=== PATIENT | male | born 1935 | race Caucasian/White ===

== ENCOUNTER 2025-04-30 14:35 | Emergency (ER) | payer MEDICARE, OTHER, SELFPAY ==
[2025-04-30 14:43] VITALS: BMI 30.7
[2025-04-30 14:44] VITALS: PULSE 77; O2SAT 97
--- NOTE | 2025-04-30 14:52 | EDNOTE_ITS ---
ED Weakness RME/HPI General Chief complaint: Weakness Stated complaint: WEAKNESS Time Seen by Provider: 04/30/25 14:43 Arrival date/time: 04/30/25 14:35 RME / HPI RME / HPI Narrative: 89 year old male with history of hypertension and diabetes presents to the ED BIBA from home for evaluation of weakness today. Per medics, on scene reported at baseline the patient is able to walk with assistance of walker. However, noted this morning the patient was having difficulty getting up out of bed which concerned her. Per medics, G-FAST on scene was negative for stroke, vital signs remained stable, and prehospital BS 131. Medics mentioned the patient did urinate on himself which they report was due to not getting the urinal on time. In the ED, patient denies any fevers, chills, chest pain, cough, shortness of breath, abdominal pain, n/v/d, or urinary symptoms. Related Data Home Medications ?Medication ?Instructions ?Recorded ?Confirmed Ezetimibe/Simvastatin * (VYTORIN 1 tab PO HS #0 tabs 1 08/14/15 *) Minocycline Hcl 1 tab PO QDAY Inflammation # #0 06/14/16 allopurinol 100 mg tablet 100 mg PO QDAY #0 tabs 06/14 (Zyloprim) atenolol 50 mg tablet (Tenormin) 50 mg PO QAM High Blo od Pressure 06/14/16 #0 tabs indapamide 1.25 mg tablet 5 mg PO QDAY #0 tabs 6 prazosin 1 mg capsule (Minipress) 1 mg PO QDAY #0 caps 06/14/16 Allergies Allergy/AdvReac Type Severity Reaction Status Date / Time Penicillins Allergy Unknown Verified 04/30/25 14:43 Review of Systems Review of Systems Systems Reviewed: All systems reviewed, normal except as documented Past Medical History Past Medical History CARDIAC: Positive Hypertension ENDOCRINE: Positive Diabetes Mellitus Type 2 Surgical History SURGICAL: Positive Vascular Surgery, Joint Replacement and Knee Sx Social History SMOKING STATUS: Never smoker ED Exam Narrative Physical exam: Constitutional: Awake, alert, nontoxic, elderly, frail, noted to have urinary incontinence on initial exam. HEENT: Normocephalic, atraumatic, extraocular movements intact. Neck: Supple CV: Regular rate and rhythm, no murmurs/rubs/gallops Lungs: Clear to auscultation BL, no respiratory distress. Abd: Soft, NT, ND, no HSM noted to palpation Extremities: No deformities, decreased range of motion noted to left lower extremity which per patient is baseline. Neuro: AAOx3, CN 2-12 GIBL, no acute neuro deficit noted. Skin: Warm, dry, intact Course Course Course Narrative: 1800h: Patient's potassium is low at 3.1?replaced with 40 of potassium p.o. Received 1 L normal saline. Currently awaiting urinalysis. Chest x-ray shows possible early pneumonia to base. Patient will be signed out to Dr. Azul pending urinalysis and disposition. If patient is able to ambulate well in department after meds, likely would be able to discharge home with close outpatient follow-up. Quality Measures none Orders Category Date Time Status Outpatient Therapist STAT Care 04/30/25 14:54 Active Continuous Pulse Oximetry ONCE Care 04/30/25 14:54 Active EKG (ED ONLY) *Do not use* NOW Care 04/30/25 14:54 Completed Insert IV STAT Care 04/30/25 14:54 Active EKG (ED Only) Stat Exams 04/30/25 14:54 Draft XR chest 1V portable Stat Exams 04/30/25 14:54 Completed CBC Stat Lab 04/30/25 15:45 Completed CK [Creatine Kinase] Stat Lab 04/30/25 15:45 Completed CRP [C-Reactive Protein] Stat Lab 04/30/25 15:45 Completed Comprehensive Metabolic Panel Stat Lab 04/30/25 15:45 Completed Urinalysis, C/S if Indicated Stat Lab 04/30/25 14:55 Ordered Potassium Chloride [K-Dur] Med 04/30/25 18:05 Once 40 meq PO X1 ONE Sodium Chloride 0.9% 1000 ml [Ns] 1,000 ml Med 04/30/25 14:54 Discontinued IV 999 mls/hr Vital Signs Vital signs: Vital Signs Temperature 98.9 F 04/30/25 17:41 Pulse Rate 68 04/30/25 17:41 Respiratory Rate 18 04/30/25 17:41 Blood Pressure 129/73 04/30/25 17:41 Pulse Oximetry (%) 98 04/30/25 17:41 Oxygen Delivery Method Room Air 04/30/25 17:41 Weakness Patient data External records reviewed:: [facility] previous records and EMS form Clinical information provided by:: patient and EMS Social determinants that could affect healthcare access:: none Patient has the following chronic illnesses:: HTN, DM How is presenting disease/condition affected by chronic disease/condition?: exacerbated by Evaluation data The following diagnostics were reviewed and interpreted by me:: lab results, radiology exam(s) and EKG tracing(s) (NSR with first degree AV block, rate 68, left axis deviation ) Lab and/or radiology exams considered but not ordered:: None Interpretation Summary: Ordering Physician: Harini Carreno MD Date of Service: 04/30/25 Procedure(s): XR chest 1V portable Accession Number(s): [id number] cc: Waqas Rutherford MD; Harini Carreno MD; NO PRIMARY/FAMILY,PHYSICIAN~ Examination: AP chest single view Technique: AP portable upright chest single view Date and time: April 30, 2025, 1459 hours, comparison July 31, 2010 INDICATIONS: Chest pain today. FINDINGS: Retrocardiac gastric hernia. Normal heart size Atelectasis versus pneumonia left base Prominent osteopenia IMPRESSION: Atelectasis versus early pneumonia left base, clinical correlation advised Dictated By: Waqas Rutherford MD Signed By: <Electronically signed by Waqas Rutherford MD in OV> 04/30/25 1559 Medications / Prescriptions Medications or Prescriptions considered but not ordered:: None Medication administrations:: Medication Administration History Potassium Chloride (Potassium Chloride 20 Meq Tabcr) 40 meq PO X1 ONE Stop: 04/30/25 18:06 Discontinued Medications Sodium Chloride (Ns) 1,000 mls @ 999 mls/hr IV .Q1H1M ONE Stop: 04/30/25 15:54 Last Admin: 04/30/25 16:39 Dose: 999 mls/hr Documented By: CS See above Consultations Consultation(s) initiated? (list below): No Diagnosis Weakness Differential Diagnosis: anemia, sepsis and dehydration Most likely diagnosis given after review of the tests above:: Hypokalemia, generalized weakness, r/o UTI Admission Indicated Admission indicated?: not indicated Explain why admission is indicated or not indicated:: Signed out to Dr. Pérez pending ua and final disposition. Admission Request Was there a request for admission?: No Disposition Plan Disposition Plan: other (specify) (Signed out to Dr. Pérez at 6PM. ) Discharge Plan Prescriptions/Referrals Prescriptions/Med Rec: No Action prazosin [Minipress] 1 MG capsule 1 mg PO QDAY Qty: 0 allopurinol [Zyloprim] 100 MG tablet 100 mg PO QDAY Qty: 0 indapamide 1.25 MG tablet 5 mg PO QDAY Qty: 0 atenolol [Tenormin] 50 MG tablet 50 mg PO QAM Qty: 0 Ezetimibe/Simvastatin * (VYTORIN 10/40 *) 1 TAB tablet 1 tab PO HS Qty: 0 Minocycline Hcl 100 MG capsule 1 tab PO QDAY Qty: 0 Referrals: No Primary/Family,Physician [Primary Care Provider] - In 1 week Problem List Clinical Impression: Hypokalemia, Generalized weakness Patient/Caregiver Discharge Instructions Print Language: Rw[place]an
--- NOTE | 2025-04-30 14:54 | EKG_ITS ---
[facility] Test Date: 2025-04-30 Pat Name: SUAD DOMINGUEZ Department: Room: - Gender: Male [employer] Attendant: : 1935 Requested By: Harini Amaral Order Number: [id number] Reading MD: Harini Amaral Measurements Intervals [place] Rate: 68 P: 83 [place]: 238 QRS: -36 QRSD: 129 T: -8 QT: 423 QTc: 451 Interpretive Statements SINUS RHYTHM WITH FIRST DEGREE AV BLOCK LEFT AXIS DEVIATION [QRS AXIS < -30] RIGHT BUNDLE BRANCH BLOCK [120+ ms QRS DURATION, UPRIGHT V1, 40+ ms S IN I/aVL/V4/V5/V6] No previous ECG available for comparison /[id number]/[email or web address]/[id number].pdf
[2025-04-30 15:58] LABS: Basophils # (Auto) 0.0 Thou/mm3 (0.0-0.2); Basophils % (Auto) 0 % (0-2.5); Eosinophils # (Auto) 0.0 Thou/mm3 (0.0-0.5); Eosinophils % (Auto) 0 % (0-10); Hematocrit 38.3 % (41.0-53.0); Hemoglobin 13.4 g/dL (13.5-16.0); Immature Granulocytes Auto 0.01 Thou/mm3 (0.00-0.00); Lymphocytes # (Auto) 0.4 Thou/mm3 (1.0-4.8); Lymphocytes % (Auto) 6 % (10-50); Mean Corpuscular HGB Conc 35.0 g/dl (31.0-37.0); Mean Corpuscular Hemoglobin 30.5 pg (25.0-35.0); Mean Corpuscular Volume 87 fL (80-100); Monocytes # (Auto) 0.6 Thou/mm3 (0.0-0.8); Monocytes % (Auto) 9 % (0-12); Neutrophils # (Auto) 5.8 Thou/mm3 (1.8-7.7); Neutrophils % (Auto) 85 % (37-80); Nucleated Red Blood Cell # 0.00 Thou/mm3 (0.00-0.00); Nucleated Red Blood Cell % 0 /100 WBC (0); Platelet Count 210 Thou/mm3 (140-440); RDW Standard Deviation 41.6 fL (35.1-43.9); Red Blood Count 4.39 Miln/mm3 (4.50-5.90); White Blood Count 6.8 Thou/mm3 (3.8-10.6)
[2025-04-30 16:18] LABS: Alanine Aminotransferase 15 U/L (10-49); Albumin, Serum 4.0 gm/dL (3.4-4.8); Albumin/Globulin Ratio 2.0 (1.2-2.2); Alkaline Phosphatase 93 U/L (46-116); Anion Gap 11 (7-16); Aspartate Amino Transferase 20 U/L (0-34); BUN/Creatinine Ratio 15 Ratio (12-20); Bilirubin,Total 0.7 mg/dL (0.3-1.2); Blood Urea Nitrogen 17 mg/dL (9-23); C-Reactive Protein 4.9 mg/dL (0.0-0.9); Calcium 9.5 mg/dL (8.3-10.6); Calcium (Corrected) 9.5 mg/dL (8.5-10.1); Carbon Dioxide 28.3 mMol/L (20.0-31.0); Chloride 101 mMol/L (98-107); Creatine Kinase 65 U/L (34-171); Creatinine (Component) 1.1 mg/dL (0.6-1.3); Estimated Creatinine Clearance 46.8 mL/min (>60); Globulin 2.0 gm/dL (2.3-3.5); Glucose 115 mg/dL (74-106); Osmolality,Calculated 281 (275-295); Potassium 3.1 mMol/L (3.4-5.1); Sodium 140 mMol/L (136-145); Total Protein 6.0 gm/dL (5.7-8.2); eGFR > 60 See Note
[2025-04-30] MEDS: SODIUM CHLORIDE 0.9% 1000 ML 1,000 ML 999 ML IV (16:39)
[2025-04-30 17:41] VITALS: BP 129/73; PULSE 68; RESP 18; TEMP 37.2; O2SAT 98
--- NOTE | 2025-04-30 18:12 | PD.EDADDENDU ---
Emergency Room Addendum Addendum Narrative: 1800: Care assumed from Dr. Carreno, the previous shift emergency physician. Past medical, surgical, social and family history reviewed. Vitals and home medications reviewed. Results and treatment plan discussed. I will assume the care of the patient at this time and will follow the patient, pending UA. Please refer to the emergency department record for history and examination from initial visit. The following addendum documentation note is intended to reflect any pending information, findings, or radiology results not included in the patient?s initial chart. UA is negative for UTI. CXR shows pneumonia. Patient has remained stable while under my care and is considered stable for discharge home. I sent a prescription for doxycycline to his pharmacy.
[2025-04-30] MEDS: cefTRIAXone/D5w 1gm IV premix 1 GM/50 ML BAG IV (19:15)
[2025-04-30] MEDS: AZITHROMYCIN INJ 500 MG in SODIUM CHLORIDE 0.9% 250 ML 250 ML 250 MG IV (19:28)
[2025-04-30 19:43] VITALS: BP 113/74; PULSE 74; RESP 19; TEMP 37.2; O2SAT 98
[2025-04-30 19:48] LABS: Collection Type, Urine Clean Catch
[2025-04-30 20:16] LABS: Bilirubin,Urine Negative (Negative); Blood,Urine Negative (Negative); Clarity,Urine Clear (Clear/Hazy); Color,Urine Yellow (Lt Yel-Yel); Culture Indicated,Urine Not Indicated; Glucose, Urine Negative (Negative); Hyaline Casts,Urine < 1 /hpf (0-1); Ketones,Urine Negative (Negative); Leukocyte Esterase,Urine Negative (Negative); Nitrite,Urine Negative (Negative); PH,Urine 7.0 (5.0-7.0); Protein,Urine Negative (Neg - Trace); RBC,Urine 1 /hpf (0-3); Specific Gravity,Urine 1.021 (1.001-1.035); Squamous Epithelial Cell,Urine 7 /hpf (0-5); Urobilinogen,Urine Negative mg/dL (0.0-1.0); WBC,Urine 1 /hpf (0-5)
[2025-04-30 21:14] VITALS: BP 121/79; PULSE 79; RESP 19; TEMP 36.7; O2SAT 98
== END 2025-04-30 21:15 | disposition home or self-care (01) ==
PROVIDERS: Emergency Provider Family Medicine
DX: J18.9 Pneumonia, unspecified organism (principal); I44.0 Atrioventricular block, first degree; E87.6 Hypokalemia; R53.1 Weakness; E11.9 Type 2 diabetes mellitus without complications; I10 Essential (primary) hypertension
CPT/HCPCS: 36415; 71045; 80053; 81001; 82550; 85025; 86140; 93005; 96361; 96365; 96366; 99284; J0456; J0696; J7030; J7050; A9270